=== PATIENT | female | born 1970 | race Caucasian/White ===

== ENCOUNTER 2020-01-19 12:49 | Outpatient (REF) | payer OTHER, SELFPAY ==
--- NOTE | 2020-01-19 13:22 | CT_ITS ---
EXAMINATION: CT ABDOMEN AND PELVIS WITH CONTRAST CLINICAL INFORMATION: Right lower quadrant pain COMPARISON: None TECHNIQUE: Multidetector volumetric images were obtained from the superior aspect of the liver through the pubic symphysis following administration 85 mL of Omnipaque 350 intravenous contrast. Sagittal and coronal reformatted images were obtained on the technologist's workstation. Oral contrast: Yes This CT examination was performed using dose optimization techniques as appropriate, variously including the following: *Automated exposure control *Adjustment of mA and/or kV according to patient size (this includes techniques or standardized protocols for targeted exams where dose is matched to indication/reason for exam; i.e. extremities or head) *Use of iterative reconstruction technique DLP: 445 mGy-cm FINDINGS: LUNG BASES: Subsegmental atelectasis left anterior lateral and left posterior lateral base. No effusion. LIVER, GALLBLADDER, AND BILIARY TREE: Liver is normal in size and smooth in contour. There is mild hepatic steatosis. No focal hepatic parenchymal lesion or intrahepatic ductal dilatation. The gallbladder is unremarkable with no evidence of radiopaque gallstones, gallbladder wall thickening, or obvious pericholecystic inflammatory changes. PANCREAS: Unremarkable. SPLEEN: Spleen is normal in size. There is a 1 cm nonspecific low attenuation lesion upper spleen, possibly cyst or hamartoma. There is a 0.9 cm splenule between the pancreas and spleen left upper quadrant. ADRENAL GLANDS: Unremarkable. KIDNEYS AND URETERS: The kidneys are normal in size and enhance symmetrically. There are multiple bilateral parapelvic cysts in the renal sinuses, greater on left. There is no hydroureter or perinephric stranding. There are 2 small nonobstructing calculi lower pole right kidney, both under 3 mm. There are 4 nonobstructing calculi mid to lower pole left kidney under 4 mm. No ureteral calculi. BLADDER: Unremarkable. GASTROINTESTINAL TRACT: There is no bowel obstruction or inflammatory changes in the bowel or mesentery. The appendix is normal. There is borderline sliding hiatal hernia. No ascites or fluid collection. No pneumatosis or free air. ABDOMINAL WALL: No significant hernia is appreciated. LYMPH NODES: No lymphadenopathy. VASCULAR: Unremarkable. PELVIC VISCERA: 1 cm exophytic fibroid from anterior uterine fundus. No adnexal mass or pelvic ascites. OSSEOUS STRUCTURES: Unremarkable. CT/CT abdomen pelvis w con IMPRESSION: 1. No inflammatory changes in abdomen or pelvis. Normal appendix. 2. Bilateral nonobstructing renal calculi and bilateral parapelvic cysts. No hydronephrosis or perinephric stranding. 3. No adnexal mass or pelvic ascites. 1 cm exophytic fundal fibroid.
[2020-01-19 14:05] LABS: Blood Urea Nitrogen 19 mg/dL (9-16); Estimated Glomerular Filt Rate > 60
[2020-01-19] MEDS: iohexoL 350 MG/ML 100 ML INFUS..BTL IV (16:09)
[2020-01-19] MEDS: Barium Sulfate Oral (Berry) 450 ML ORAL.SUSP 900 ML PO (16:11)
== END 2020-01-19 12:50 | disposition home or self-care (01) ==
LOC: HO.CT 12:49
PROVIDERS: PCP Internal Medicine; Visit Provider Internal Medicine
DX: R10.31 Right lower quadrant pain (principal)
CPT/HCPCS: 74177; 82565; 84520